=== PATIENT | female | born 1970 | race Caucasian/White ===

== ENCOUNTER → 2025-03-07 | Outpatient (CLI) | payer OTHER ==
[~2025-03-07] MED LIST: ADVIL100 MG PO; Flomax0.4 MG PO; IBUP600 PO; Norco 5-325 Ta1 EACH PO; Percocet 5-3251 EACH PO; Zofran4 MG PO
== END ==
LOC: LAB 09:23 → LAB SHORT 09:23
DX: J02.9 Acute pharyngitis, unspecified (principal)
CPT/HCPCS: 87081